=== PATIENT | female | born 1970 | race Caucasian/White ===

== ENCOUNTER 2025-05-29 00:07 | Emergency (ER) | payer OTHER | END 2025-05-29 00:33 | disposition home or self-care (01) | LOC: LL.ED 00:07 | DX: H95.5 Postprocedural hematoma and seroma of ear and mastoid process following a procedure (principal); I10 Essential (primary) hypertension; E66.9 Obesity, unspecified; Z88.8 Allergy status to other drugs, medicaments and biological substances; Z79.899 Other long term (current) drug therapy; Z90.49 Acquired absence of other specified parts of digestive tract; Z90.710 Acquired absence of both cervix and uterus; Z68.25 Body mass index [BMI] 25.0-25.9, adult | CPT/HCPCS: 99283 ==